=== PATIENT | male | born 1985 | race African-American/Black ===

== ENCOUNTER 2016-09-15 19:08 | Emergency (ER) | payer OTHER ==
[~2016-09-15] VITALS: Ht 175.3 cm; Wt 78.3 kg
[2016-09-15 19:16] VITALS: BP 138/68; PULSE 68; RESP 18; TEMP 98.4; O2SAT 100
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
== END 2016-09-15 19:46 | disposition home or self-care (01) ==
LOC: PHEFT 19:08
DX: S09.90XA Unspecified injury of head, initial encounter (principal); V49.49XA Driver injured in collision with other motor vehicles in traffic accident, initial encounter; Y92.410 Unspecified street and highway as the place of occurrence of the external cause
CPT/HCPCS: 99283